=== PATIENT | female | born 1965 | race Caucasian/White ===

== ENCOUNTER 2019-10-20 11:17 | Emergency (ER) | payer OTHER, SELFPAY ==
--- NOTE | ~2019-10-20 | CT_ITS ---
EXAMINATION: CT abdomen pelvis wo con DATE: 10/20/2019 11:51 INDICATION: Right flank pain TECHNIQUE: Computed tomography (CT) of the abdomen and pelvis was performed without intravenous contr ast. The dose-length product (DLP) was 1546.57 mGy-cm. Automated exposure control and iterative recon struction technique were employed. COMPARISON: 10/28/2010 FINDINGS: Minimal dependent atelectasis is present in the lung bases. The heart size is normal. There is a small sliding hiatal hernia. The gallbladder is surgically absent. The liver, spleen, pancreas, and adrenal glands are normal. There is a 3 mm stone at the right ureterovesicular junction which ca uses mild right hydroureteronephrosis. There is a 5 mm nonobstructing stone of the left kidney. Phleb oliths are noted in the pelvis. No pathologically enlarged abdominal or pelvic lymph nodes are identi fied. There is no free intraperitoneal gas or evidence of bowel obstruction. Colonic diverticulosis i s present without evidence of diverticulitis. IMPRESSION: 1. 2 mm stone at the right ureterovesicular junction causing mild right hydroureteronephrosis. 2. Left nephrolithiasis. Reviewed, dictated and finalized at location A. IMPRESSION: 1. 2 mm stone at the right ureterovesicular junction causing mild right hydrour eteronephrosis. 2. Left nephrolithiasis.
[2019-10-20 11:27] VITALS: BP 166/91; PULSE 64; RESP 18; TEMP 36.6; O2SAT 100
[2019-10-20] MEDS: MORPHINE SULFATE 4 MG/ML INJ IV PUSH (11:38)
[2019-10-20] MEDS: ONDANSETRON INJ 4 MG/2 ML VIAL IV PUSH (11:38)
--- NOTE | 2019-10-20 11:57 | ED.ABDPAIN ---
HPI - Abdominal Pain General Chief Complaint: Urogenital-Female Stated Complaint: R Flank Pain Time Seen by Provider: 10/20/19 11:27 History of Present Illness HPI narrative: Patient is a 54-year-old female who presents to the ER with sudden onset right flank pain. Began earlier this morning radiates around into her right groin. Associated with proxisms of pain and nausea/vomiting. Denies urinary frequency urgency or dysuria. Feels similar to previous kidney stone she has had in the past. No alleviating factors. Related Data Allergies Allergy/AdvReac Type Severity Reaction Status Date / Time No Known Allergies Allergy Mild Verified 09/28/10 17:10 Review of Systems Review of Systems: All systems reviewed & are unremarkable except as noted in HPI and below Constitutional: Constitutional: Reports chills, Denies fever(s) and Denies weakness ENT: Denies nasal congestion and Denies sore throat Respiratory: Respiratory: Denies cough, Denies dyspnea and Denies wheezing Gastrointestinal: Gastrointestinal: Reports abdominal pain, Denies constipation, Denies diarrhea, Reports nausea and Reports vomiting Genitourinary: Genitourinary: Denies hematuria, Denies nocturia, Denies dysuria and Reports flank pain PMFSH Past Medical History Medical History (Updated 10/20/19 @ 14:27 by Evan Crandall MD) Kidney stones Surgical History Surgical History (Updated 10/20/19 @ 12:09 by Evan Crandall MD) History of cholecystectomy History of tonsillectomy Social History Social History (Updated 10/20/19 @ 12:10 by Evan Crandall MD) Smoking status: Never smoker Alcohol use details: Occasional Exam Narrative: Exam Narrative: GENERAL: Uncomfortable-appearing, obese, and in no acute distress. HEAD: Normocephalic, atraumatic. ENT: Mucous membranes moist. CHEST: Clear to auscultation. No respiratory distress. HEART: Regular rate and rhythm. Normal peripheral pulses. ABDOMEN: Soft, nontender, nondistended. EXTREMITIES: Normal range of motion. No edema. NEURO: Alert and oriented x3. PSYCH: Normal mood and affect. Course Course Emergency Course: Pain markedly improved. Discharge home with pain medication and Flomax. Vital Signs Vital signs: Vital Signs Temperature 97.9 F 10/20/19 11:27 Pulse Rate 64 10/20/19 11:27 Respiratory Rate 18 10/20/19 11:27 Blood Pressure 166/91 H 10/20/19 11:27 Pulse Oximetry 100 10/20/19 11:27 Temperature 97.9 F 10/20/19 11:27 Pulse Rate 57 L 10/20/19 13:00 Respiratory Rate 18 10/20/19 13:00 Blood Pressure 150/64 H 10/20/19 13:00 Pulse Oximetry 94 10/20/19 13:00 MDM - Abdominal Pain Lab Data Result diagrams: 10/20/19 11:57 10/20/19 11:57 Labs: Lab Results 10/20/19 10/20/19 10/20/19 Range/Units 11:57 11:57 13:56 WBC 11.0 H (4.5-10.0) K/mm3 RBC 4.39 (4.2-5.4) M/mm3 Hgb 13.8 (12.0-15.0) g/dL Hct 42.5 (37.0-47.0) % MCV 96.8 (80-100) fl MCH 31.4 (26-34) pg MCHC 32.5 (32-36) g/dl RDW 14.5 (11.5-14.5) % Plt Count 460 H (150-375) k/mm3 MPV 10.6 H (7.4-10.4) fl Immature Gran % (Auto) 0.3 (0-0.5) % Neut % (Auto) 79.9 H (45.5-73.1) % Lymph % (Auto) 13.9 L (18.3-44.2) % [place] % (Auto) 5.0 (2.6-8.5) % Eos % (Auto) 0.5 (0-4.4) % Baso % (Auto) 0.4 (0.2-1.2) % Lymph # (Auto) 1.53 (0.9-3.2) K/mm3 [place] # (Auto) 0.6 (0.1-0.6) K/mm3 Eos # (Auto) 0.1 (0-0.3) K/mm3 Baso # (Auto) 0.0 (0.0-0.1) K/mm3 Abs Immat Gran (auto) 0.03 (0.00-0.031) K/mm3 Absolute Neuts (auto) 8.8 H (1.3-6.7) K/mm3 Absolute Nucleated RBC 0.0 (0.0-0.012) K/mm3 Nucleated RBC % 0.0 (0.0-0.2) % Sodium 144 (137-145) mmol/L Potassium 3.8 (3.4-5.0) mmol/L Chloride 106 (98-107) mmol/L Carbon Dioxide 29 (22-30) mmol/L BUN 16 (7-17) mg/dL Creatinine 1.00 (0.7-1.0) mg/dL Estim Creat Clear Calc 72 ml/min E
[2019-10-20 12:05] LABS: Basophils Percent Auto 0.4 % (0.2-1.2); Eosinophils Absolute Auto 0.1 K/mm3 (0-0.3); Eosinophils Percent Auto 0.5 % (0-4.4); Hematocrit 42.5 % (37.0-47.0); Hemoglobin 13.8 g/dL (12.0-15.0); Immature Granulocyte Absolute 0.03 K/mm3 (0.00-0.031); Immature Granulocyte Percent A 0.3 % (0-0.5); Lymphocytes Absolute Auto 1.53 K/mm3 (0.9-3.2); Lymphocytes Percent Auto 13.9 % (18.3-44.2); Mean Corpuscular HGB Conc 32.5 g/dl (32-36); Mean Corpuscular Hemoglobin 31.4 pg (26-34); Mean Corpuscular Volume 96.8 fl (80-100); Mean Platelet Volume 10.6 fl (7.4-10.4); Monocytes Absolute Auto 0.6 K/mm3 (0.1-0.6); Neutrophils Absolute Auto 8.8 K/mm3 (1.3-6.7); Neutrophils Percent Auto 79.9 % (45.5-73.1); Platelet Count Result 460 k/mm3 (150-375); Red Blood Count 4.39 M/mm3 (4.2-5.4); Red Cell Distribution Width 14.5 % (11.5-14.5)
[2019-10-20 12:21] LABS: Blood Urea Nitrogen 16 mg/dL (7-17); Calcium 9.2 mg/dL (8.4-10.2); Carbon Dioxide 29 mmol/L (22-30); Chloride 106 mmol/L (98-107); Estimated CRCL calculation 72 ml/min; Estimated Glomerular Filt Rate 57; Glucose 115 mg/dL (65-105); Potassium 3.8 mmol/L (3.4-5.0); Sodium 144 mmol/L (137-145)
[2019-10-20] MEDS: KETOROLAC 30 MG/ML VIAL (*BKC) IV PUSH (12:25)
[2019-10-20 13:00] VITALS: BP 150/64; PULSE 57; RESP 18; O2SAT 94
[2019-10-20 14:06] LABS: Add Urine Microscopic? YES; Appearance Urine Cloudy (Clear); Bacteria Urine Trace /hpf; Bilirubin Urine Negative (Negative); Blood Urine 2+ (Negative); Color Urine Yellow (Yellow); Glucose Urine UA Negative (Negative); Ketones Urine Negative (Negative); Leukocyte Esterase Ur Negative LEU/UL (Negative); Mucus Urine Heavy /lpf; Nitrate Urine Negative (Negative); Protein Urine 1+ mg/dL (Negative); RBC Urine 21-50 /hpf (0-2); Specific Grav Ur 1.029 (1.001-1.035); Squamous Epithelial Cell Urine Many /hpf (Few); Urobilinogen Urine Negative mg/dL (<2.0)
[2019-10-20 14:41] VITALS: BP 149/68; PULSE 54; RESP 16; O2SAT 97
== END 2019-10-20 14:43 | disposition home or self-care (01) ==
PROVIDERS: Emergency Provider Emergency Medicine; PCP Internal Medicine
DX: N13.2 Hydronephrosis with renal and ureteral calculous obstruction (principal)
CPT/HCPCS: 36415; 74176; 80048; 81001; 85025; 96374; 96375; 99284; J1885; J2270; J2405